=== PATIENT | female | born 1940 | race Caucasian/White ===

== ENCOUNTER 2020-11-30 08:54 | Emergency (ER) | payer MEDICARE, OTHER ==
[~2020-11-30] VITALS: Ht 157.5 cm; Wt 81.8 kg
[2020-11-30 09:00] VITALS: BP 150/79; Ht 157.5 cm; Wt 81.8 kg
[2020-11-30] MEDS ORDERED: ACETAMINOPHEN500 M1 PO (09:49)
[2020-11-30] MEDS ORDERED: CYCLOBENZAPRINE10 MG PO (09:49)
[2020-11-30] MEDS ORDERED: NAPROSYN500 MG PO (09:49)
== END 2020-11-30 11:04 | disposition home or self-care (01) ==
LOC: D.ER 08:54
DX: S93.401A Sprain of unspecified ligament of right ankle, initial encounter (principal); S80.01XA Contusion of right knee, initial encounter; T14.8XXA Other injury of unspecified body region, initial encounter; W01.0XXA Fall on same level from slipping, tripping and stumbling without subsequent striking against object, initial encounter; Y93.9 Activity, unspecified; Y92.9 Unspecified place or not applicable